=== PATIENT | female | born 1970 | race Caucasian/White ===

== ENCOUNTER 2020-05-05 10:44 | Emergency (ER) | payer BC, OTHER ==
[2020-05-05] MEDS ORDERED: Sodium Chloride 0.9% 10 ML Syringe FLUSH PRN (11:03)
--- NOTE | 2020-05-05 11:47 | EDM.PDOC ---
ED HPI GENERAL MEDICAL PROBLEM - General Chief Complaint: Respiratory Problem Stated Complaint: [facility] Time Seen by Provider: 05/05/20 10:59 Source of Information: Reports: Patient, RN Notes Reviewed History Limitations: Reports: No Limitations - History of Present Illness INITIAL COMMENTS - FREE TEXT/NARRATIVE: Patient is a 49-year-old female presenting to the emergency department with complaints of ongoing weakness and fatigue as well as a mild cough. She was diagnosed as 2 weeks ago. Symptoms initially began with a tickle in her throat and sneezing. She denies any shortness of breath or chest pain. Covid positive she states that she has had fevers off and on, however she has not checked for the last few days. Denies any nausea vomiting or diarrhea. 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 Vital signs on triage were normal. Temperature 97.2, pulse 67, blood pressure 107/71, respiratory 16, oxygen 99% on room air. Treatments MANAGER SOCIAL: Reports: IV/IO - Related Data Allergies Allergy/AdvReac Type Severity Reaction Status Date / Time ibuprofen [From Motrin] Allergy Severe Rash Verified 05/05/20 10:53 Home Meds: Home Meds FLUoxetine HCl [Fluoxetine HCl] 20 mg PO DAILY 05/05/20 [History] Levothyroxine Sodium [Tirosint] 1 tab PO DAILY 05/05/20 [History] Liothyronine Sodium 5 mcg PO DAILY 05/05/20 [History] Naltrexone HCl 1 appful TD DAILY 05/05/20 [History] Testosterone [Androgel] 1 appful TD DAILY 05/05/20 [History] dexAMETHasone [Dexamethasone] 4 mg PO BID #9 tab 05/05/20 [Rx] Past Medical History Endocrine/Metabolic History: Reports: Other (See Below) Other Endocrine/Metabolic History: Hashimotos thyroiditis - Infectious Disease History Infectious Disease History: Reports: Novel Coronavirus Social & Family History - Tobacco Use Tobacco Use Status *Q: Never Tobacco User - Recreational Drug Use Recreational Drug Use: No ED ROS GENERAL - Review of Systems Review Of Systems: See Below Constitutional: Reports: Fever, Chills, Weakness, Fatigue HEENT: Reports: No Symptoms Respiratory: Reports: Cough. Denies: Shortness of Breath, Wheezing, Pleuritic Chest Pain Cardiovascular: Reports: No Symptoms. Denies: Chest Pain, Lightheadedness, Palpitations Endocrine: Reports: No Symptoms GI/Abdominal: Reports: No Symptoms : Reports: No Symptoms Musculoskeletal: Reports: No Symptoms Skin: Reports: No Symptoms Neurological: Reports: No Symptoms Psychiatric: Reports: No Symptoms Hematologic/Lymphatic: Reports: No Symptoms Immunologic: Reports: No Symptoms ED EXAM, GENERAL - Physical Exam Exam: See Below General Appearance: Alert, WD/WN, No Apparent Distress Respiratory/Chest: No Respiratory Distress, Lungs Clear, Normal Breath Sounds, No Accessory Muscle Use, Chest Non-Tender Cardiovascular: Normal Peripheral Pulses, Regular Rate, Rhythm, No Edema, No Gallop, No JVD, No Murmur, No Rub GI/Abdominal: Normal Bowel Sounds, Soft, Non-Tender, No Organomegaly, No Distention, No Abnormal Bruit, No Mass Neurological: Alert, Oriented, CN II-XII Intact, Normal Cognition, Normal Gait, Normal Reflexes, No Motor/Sensory Deficits Psychiatric: Normal Affect, Normal Mood Skin Exam: Warm, Dry, Intact, Normal Color, No Rash #1 Interpretation EKG Date: 05/05/20 Time: 11:24 Rhythm: NSR Rate (Beats/Min): 74 [place]: Normal P-Wave: Present QRS: Normal ST-T: Normal QT: Normal EKG Interpretation Comments: Sinus rhythm at 74 Q-wave V1 and near Q wave V2-old anterior lateral SC. Left atrial hypertrophy T wave flattening aVL-nonspecific EKG read by Dr. Lima DEWITT. Course - Vital Signs Last Recorded V/S: Last Vital Signs Temp 97.2 F 05/05/20 10:50 Pulse 67 05/05/20 10:50 Resp 16 05/05/20 10:50 BP 107/71 05/05/20 10:50 Pulse Ox 99 05/05/20 10:50 - Orders/Labs/Meds Orders: Active Orders 24 hr Category Date Time Status EKG Documentation Completion [RC] STAT Care 05/05/20 11:04 Active Peripheral IV Care [RC] . DIRECTED Care 05/05/20 11:04 Active CULTURE URINE [RM] Stat Lab 05/05/20 12:46 Ordered UA W/MICROSCOPIC [URIN] Stat Lab 05/05/20 12:00 Results Sodium Chloride 0.9% [Saline Flush] Med 05/05/20 11:03 Active 10 ml FLUSH ASDIRECTED PRN Peripheral IV Insertion Adult [OM.PC] Stat Oth 05/05/20 11:03 Ordered Medication Orders Sodium Chloride (Sodium Chloride 0.9% 10 Ml Syringe) 10 ml FLUSH ASDIRECTED PRN PRN Reason: Keep Vein Open Last Admin: 05/05/20 12:01 Dose: 10 ml Documented by: ANGEL Labs: Laboratory Tests 05/05/20 05/05/20 05/05/20 Range/Units 11:34 11:34 11:34 WBC 3.85 L (3.98-10.04) K/mm3 RBC 4.50 (3.98-5.22) M/mm3 Hgb 13.1 (11.2-15.7) gm/dl Hct 39.7 (34.1-44.9) % MCV 88.2 D (79.4-94.8) fl MCH 29.1 (25.6-32.2) pg MCHC 33.0 (32.2-35.5) g/dl RDW Std Deviation 36.7 (36.4-46.3) fL Plt Count 284 (182-369) K/mm3 MPV 8.5 L (9.4-12.3) fl Neut % (Auto) 70.2 (34.0-71.1) % Lymph % (Auto) 14.5 L (19.3-51.7) % [place] % (Auto) 14.0 H (4.7-12.5) % Eos % (Auto) 0.5 L (0.7-5.8) Baso % (Auto) 0.5 (0.1-1.2) % Neut # (Auto) 2.70 (1.56-6.13) K/mm3 Lymph # (Auto) 0.56 L (1.18-3.74) K/mm3 [place] # (Auto) 0.54 H (0.24-0.36) K/mm3 Eos # (Auto) 0.02 L (0.04-0.36) K/mm3 Baso # (Auto) 0.02 (0.01-0.08) K/mm3 Manual Slide Review Normal smear D-Dimer, Quantitative 0.56 H (0.19-0.50) mg/L Sodium 141 (136-145) mEq/L Potassium 4.0 (3.5-5.1) mEq/L Chloride 103 (98-107) mEq/L Carbon Dioxide 29 (21-32) mEq/L Anion Gap 13.0 (5-15) BUN 10 (7-18) mg/dL Creatinine 0.7 (0.55-1.02) mg/dL Est Cr Clr Drug Dosing 99.37 mL/min Estimated GFR (MDRD) > 60 (>60) mL/min BUN/Creatinine Ratio 14.3 (14-18) Glucose 101 (74-106) mg/dL Calcium 8.9 (8.5-10.1) mg/dL Magnesium (1.8-2.4) mg/dl Total Bilirubin 0.5 (0.2-1.0) mg/dL AST 28 (15-37) U/L ALT 33 (14-59) U/L Alkaline Phosphatase 66 (46-116) U/L Troponin I < 0.017 (0.00-0.056) ng/mL C-Reactive Protein 8.6 H* (<1.0) mg/dL Total Protein 7.5 (6.4-8.2) g/dl Albumin 3.0 L (3.4-5.0) g/dl Globulin 4.5 gm/dL Albumin/Globulin Ratio 0.7 L (1-2) Urine Color (Yellow) Urine Appearance (Clear) Urine pH (5.0-8.0) Ur Specific [place] (1.005-1.030) Urine Protein (Negative) Urine Glucose (UA) (Negative) Urine Ketones (Negative) Urine Occult Blood (Negative) Urine Nitrite (Negative) Urine Bilirubin (Negative) Urine Urobilinogen (0.2-1.0) Ur Leukocyte Esterase (Negative) 05/05/20 05/05/20 Range/Units 11:34 12:00 WBC (3.98-10.04) K/mm3 RBC (3.98-5.22) M/mm3 Hgb (11.2-15.7) gm/dl Hct (34.1-44.9) % MCV (79.4-94.8) fl MCH (25.6-32.2) pg MCHC (32.2-35.5) g/dl RDW Std Deviation (36.4-46.3) fL Plt Count (182-369) K/mm3 MPV (9.4-12.3) fl Neut % (Auto) (34.0-71.1) % Lymph % (Auto) (19.3-51.7) % [place] % (Auto) (4.7-12.5) % Eos % (Auto) (0.7-5.8) Baso % (Auto) (0.1-1.2) % Neut # (Auto) (1.56-6.13) K/mm3 Lymph # (Auto) (1.18-3.74) K/mm3 [place] # (Auto) (0.24-0.36) K/mm3 Eos # (Auto) (0.04-0.36) K/mm3 Baso # (Auto) (0.01-0.08) K/mm3 Manual Slide Review D-Dimer, Quantitative (0.19-0.50) mg/L Sodium (136-145) mEq/L Potassium (3.5-5.1) mEq/L Chloride (98-107) mEq/L Carbon Dioxide (21-32) mEq/L Anion Gap (5-15) BUN (7-18) mg/dL Creatinine (0.55-1.02) mg/dL Est Cr Clr Drug Dosing mL/min Estimated GFR (MDRD) (>60) mL/min BUN/Creatinine Ratio (14-18) Glucose (74-106) mg/dL Calcium (8.5-10.1) mg/dL Magnesium 2.0 (1.8-2.4) mg/dl Total Bilirubin (0.2-1.0) mg/dL AST (15-37) U/L ALT (14-59) U/L Alkaline Phosphatase (46-116) U/L Troponin I (0.00-0.056) ng/mL C-Reactive Protein (<1.0) mg/dL Total Protein (6.4-8.2) g/dl Albumin (3.4-5.0) g/dl Globulin gm/dL Albumin/Globulin Ratio (1-2) Urine Color Yellow (Yellow) Urine Appearance Clear (Clear) Urine pH 8.5 H (5.0-8.0) Ur Specific [place] 1.020 (1.005-1.030) Urine Protein Negative (Negative) Urine Glucose (UA) Negative (Negative) Urine Ketones Negative (Negative) Urine Occult Blood Negative (Negative) Urine Nitrite Negative (Negative) Urine Bilirubin Negative (Negative) Urine Urobilinogen 0.2 (0.2-1.0) Ur Leukocyte Esterase 1+ H (Negative) Meds: Medications Generic Name Dose Route Start Last Admin Trade Name Bennett PRN Reason Stop Dose Admin Sodium Chloride 10 ml 05/05/20 11:03 05/05/20 12:01 Sodium Chloride 0.9% 10 Ml Syringe FLUSH 10 ml ASDIRECTED PRN Administration Keep Vein Open Discontinued Medications Generic Name Dose Route Start Last Admin Trade Name Bennett PRN Reason Stop Dose Admin Dexamethasone 4 mg 05/05/20 12:37 05/05/20 12:48 Dexamethasone 4 Mg Tab PO 05/05/20 12:38 4 mg ONETIME ONE Administration - Re-Assessments/Exams Free Text/Narrative Re-Assessment/Exam: Patient is a 49-year-old female presenting to the emergency department with complaints of ongoing weakness and fatigue as well as a mild cough with a diagnosis of COVID-19 2 weeks ago. She denies any chest pain or shortness of breath. She is had no nausea vomiting or diarrhea. Vital signs in triage were stable. Exam findings are grossly unremarkable. I have ordered blood work, EKG, chest x-ray. 05/05/20 12:50 Hematology was significant for WBC low at 3.85, D-dimer minimally elevated 0.56, CRP 8.6. These findings are consistent with her known diagnosis of COVID-19. Urinalysis shows 1+ leukocyte esterase, but no white blood cells or bacteria. She has no urinary symptoms. I have sent this for culture.. EKG shows normal sinus rhythm at 74. Chest x-ray was focal areas of consolidation within the right upper lung with minimal density within the right lower lung. Findings most likely represent Covid pneumonia. Patient's oxygen saturations have maintained above 95% throughout her stay in the ER. I will start her on a course of dexamethasone and discharge her home. Discussed return precautions. Disch arge instructions as documented. Departure - Departure Time of Disposition: 12:52 Disposition: Home, Self-Care 01 Condition: Good Clinical Impression: COVID-19 - Discharge Information *PRESCRIPTION DRUG MONITORING PROGRAM REVIEWED*: No *COPY OF PRESCRIPTION DRUG MONITORING REPORT IN PATIENT MACY: No Prescriptions: dexAMETHasone [Dexamethasone] 4 mg PO BID #9 tab Instructions: COVID-19 Forms: ED Department Discharge Additional Instructions: You were seen in the emergency department today for evaluation with regards to ongoing fatigue and weakness with known diagnosis of COVID-19. Work-up included blood work, urinalysis, EKG, and chest x-ray. Results of your work-up were found to be overall normal given your diagnosis of Covid. You do have some mild Covid pneumonia which is viral in nature and would not respond to antibiotic treatment. You been started on dexamethasone which is a steroid. Take this medication as prescribed. Continue to rest and make sure you are getting enough fluid. If your symptoms do not improve over the next week or so, recommend follow-up in the clinic. Return to ER for any new or worsening symptoms of concern. Sepsis Event Note (ED) - Evaluation Sepsis Screening Result: No Definite Risk - Focused Exam Vital Signs: Vital Signs Temp Pulse Resp BP Pulse Ox 05/05/20 10:50 97.2 F 67 16 107/71 99 - My Orders Last 24 Hours: My Active Orders 05/05/20 11:03 Sodium Chloride 0.9% [Saline Flush] 10 ml FLUSH ASDIRECTED PRN Peripheral IV Insertion Adult [OM.PC] Stat 05/05/20 11:04 EKG Documentation Completion [RC] STAT Peripheral IV Care [RC] . DIRECTED 05/05/20 12:00 UA W/MICROSCOPIC [URIN] Stat 05/05/20 12:46 CULTURE URINE [RM] Stat - Assessment/Plan Last 24 Hours: My Active Orders 05/05/20 11:03 Sodium Chloride 0.9% [Saline Flush] 10 ml FLUSH ASDIRECTED PRN Peripheral IV Insertion Adult [OM.PC] Stat 05/05/20 11:04 EKG Documentation Completion [RC] STAT Peripheral IV Care [RC] . DIRECTED 05/05/20 12:00 UA W/MICROSCOPIC [URIN] Stat 05/05/20 12:46 CULTURE URINE [RM] Stat
--- NOTE | 2020-05-05 12:03 | CR ---
Chest: Portable view of the chest was obtained. Comparison: No previous study. Focal area of consolidation is noted within the right upper lung. Slight area of increased density within the right lower lung is seen. Left lung shows no definite acute parenchymal change. Heart size and mediastinum are normal. Bony structure shows nothing acute. Impression: 1. Focal area of consolidation within the right upper lung with minimal density within the right lower lung. Findings most likely represent COVID pneumonia. 2. No other acute abnormality is appreciated. Diagnostic code #3
[2020-05-05] MEDS ORDERED: Dexamethasone 4 MG Tab PO ONE (12:37)
== END 2020-05-05 13:55 | disposition home or self-care (01) ==
LOC: JD.ED 10:44
DX: U07.1 COVID-19 (principal); Z88.8 Allergy status to other drugs, medicaments and biological substances; Z79.899 Other long term (current) drug therapy
CPT/HCPCS: 36415; 71045; 80053; 81001; 83735; 84484; 85025; 85379; 86140; 87086; 93005; 99284; J8540; 93010; 99283

== ENCOUNTER 2023-03-10 11:46 | Emergency (ER) | payer BC, OTHER ==
[2023-03-10] MEDS ORDERED: Sodium Chloride 0.9% 10 ML Syringe FLUSH PRN (11:54)
[2023-03-10] MEDS ORDERED: Magnesium Sulfate/Water 2 GM in Premix Bag 1 BAG IV ONE (12:03)
[2023-03-10] MEDS ORDERED: Sodium Chloride 0.9% 1,000 ML IV SCH (12:15)
[2023-03-10 12:24] LABS: BASOPHILS ABSOLUTE AUTO 0.1 K/mm3 (0.0-0.2); BASOPHILS PERCENT AUTO 1.4 % (0.0-1.0); EOSINOPHILS ABSOLUTE AUTO 0.1 K/mm3 (0.0-0.4); EOSINOPHILS PERCENT AUTO 2.5 % (0.0-6.0); HEMATOCRIT 43.7 % (37.0-47.0); HEMOGLOBIN 14.7 gm/dl (12.0-16.0); IMMATURE GRAN ABSOLUTE AUTO 0.01 K/mm3 (0.00-0.05); IMMATURE GRAN PERCENT AUTO 0.2 % (0.0-0.4); LYMPHOCYTES ABSOLUTE AUTO 1.5 K/mm3 (1.0-4.8); LYMPHOCYTES PERCENT AUTO 28.4 % (24.0-44.0); MEAN CORPUSCULAR HGB CONC 33.6 g/dl (32.0-36.0); MEAN CORPUSCULAR VOLUME 89.2 fl (83.0-99.0); MEAN PLATELET VOLUME 8.2 fl (9.4-12.3); MONOCYTES ABSOLUTE AUTO 0.5 K/mm3 (0.0-0.8); MONOCYTES PERCENT AUTO 9.8 % (0.0-8.0); NEUTROPHILS PERCENT AUTO 57.7 % (41.0-71.0); PLATELET COUNT,PLT 357 K/mm3 (150-400); WHITE BLOOD CELL COUNT,WBC 5.11 K/mm3 (3.9-11.3)
[2023-03-10 12:47] LABS: A/G RATIO 1.1 (1-2); ALBUMIN 4.1 g/dl (3.4-5.0); ANION GAP 17.7 (5-15); BILIRUBIN TOTAL 0.4 mg/dL (0.2-1.0); BUN/CREATININE RATIO 12.5 (14-18); CALCIUM 9.8 mg/dL (8.5-10.1); CREATININE 0.8 mg/dL (0.55-1.02); EST CRCL DRUG DOSING (CG) 84.01 mL/min; POTASSIUM,K 3.7 mEq/L (3.5-5.1); PROTEIN TOTAL,TP 7.8 g/dl (6.4-8.2)
[2023-03-10 12:51] LABS: TSH < 0.007 uIU/mL (0.358-3.74)
[2023-03-10 13:11] LABS: T4 FREE 1.71 ng/dL (0.76-1.46)
[2023-03-10 14:00] LABS: APPEARANCE,URINE SLT CLOUDY (Clear); BILIRUBIN,URINE NEGATIVE (Negative); COLOR,URINE LIGHT YELLOW (Yellow); GLUCOSE,URINE NEGATIVE (Negative); KETONES,URINE 1+ (Negative); LEUKOCYTE ESTERASE,URINE NEGATIVE (Negative); NITRITE,URINE NEGATIVE (Negative); OCCULT BLOOD,URINE NEGATIVE (Negative); PH,URINE 7.5 (5.0-8.0); PROTEIN,URINE NEGATIVE (Negative); UROBILINOGEN,URINE 0.2 (0.2-1.0)
== END 2023-03-10 14:58 | disposition home or self-care (01) ==
LOC: JD.ED 11:46
DX: I48.3 Typical atrial flutter (principal); E05.90 Thyrotoxicosis, unspecified without thyrotoxic crisis or storm; Z88.6 Allergy status to analgesic agent; Z86.16 Personal history of COVID-19; Z79.899 Other long term (current) drug therapy
CPT/HCPCS: 36415; 71046; 80053; 81003; 83735; 84439; 84443; 84484; 85025; 93005; 96365; 99285; J3475; J3490; J7030